=== PATIENT | male | born 1990 | race Hispanic/Latino ===

== ENCOUNTER 2017-05-30 08:00 | Outpatient (RCR) | payer BC | END 2017-06-10 | LOC: PT 08:00 | PROVIDERS: ATTEND Specialist | DX: S62.307D Unspecified fracture of fifth metacarpal bone, left hand, subsequent encounter for fracture with routine healing (principal); M79.642 Pain in left hand; M25.642 Stiffness of left hand, not elsewhere classified; R53.1 Weakness | CPT/HCPCS: 97139 ==